=== PATIENT | male | born 2005 | race Native Hawaiian/Other Pacific Islander ===

== ENCOUNTER 2024-01-31 18:20 | Emergency (ER) | payer OTHER, SELFPAY ==
[2024-01-31 18:27] VITALS: BP 131/75; PULSE 68; RESP 18; TEMP 36.8; O2SAT 100; BMI 29.4
--- NOTE | 2024-01-31 18:34 | CRLHL7_ITS ---
For Patients: As a result of the Cures Act, medical imaging exams and procedure reports are released immediately into your electronic medical record. You may view this report before your referring provider. If you have questions, please contact your health care provider. Indication: Fall while snowboarding. Technique: Left shoulder 3 views. Comparison: None. Findings/Impression: Acute, severely displaced fracture of the left distal clavicle. With 2-3 shaft-widths inferior displacement of the distal fracture fragment the acromioclavicular and coracoclavicular intervals appear maintained. No glenohumeral joint dislocation. No definite scapular fracture visualized. The imaged thorax is unremarkable. Dictated by Mario Wright MD @ 01/31/2024 7:50:31 PM (Electronically Signed)
--- NOTE | 2024-01-31 18:35 | ED_ITS ---
HPI - Extremity Injury (Upper) General Chief Complaint: Extremity Pain/Injury, Upper Stated Complaint: Broken Collar bone? Time Seen by Provider: 01/31/24 18:22 History of Present Illness HPI narrative: This 18-year-old male comes in with an injury to his left shoulder that occurred just prior to arrival. He was snowboarding and fell onto his left shoulder and has a deformity in the area of his clavicle. He does not report any other injury or loss of consciousness. Related Data Home Medications ?Medication ?Instructions ?Recorded ?Confirmed No Known Home Medications 01/31/24 01/31/24 Allergies Allergy/AdvReac Type Severity Reaction Status Date / Time azithromycin Allergy Mild Rash Verified 01/31/24 18:30 Review of Systems Status of ROS: Reports: 10 or more systems reviewed and unremarkable except as noted in History and below Narrative: Constitutional: No fevers, no weight gain or loss. Eyes: No discharge. No vision changes. HENT: No congestion, no sore throat, no ear pain. Cardiovascular: No chest pain, no palpitations. Respiratory: No shortness of breath, no wheezes, no cough. Gastrointestinal: No abdominal pain, no vomiting, no diarrhea. Genitourinary: No dysuria, no hematuria. Musculoskeletal: Left shoulder injury as described above. Skin: No rashes, no pruritis. Neurological: No dizziness, weakness, sensory change, speech change. Endo/Heme/Allergies: No bruising or bleeding. No polydipsia. Pysch: no suicidality, no anxiety, no insomnia. All other systems reviewed and are negative. Exam Narrative: Exam Narrative: Constitutional: Well-developed, well-nourished, no acute distress. HEENT: Normocephalic, atraumatic. Neck: Normal range of motion. Nontender. Supple. Heart: Regular. No murmurs. Normal rate. Intact distal pulses. Lungs: Clear to auscultation. No chest discomfort. No wheezes, rhonchi, or rales. Abdomen: Normal bowel sounds. Nontender. No rebound tenderness. Genitalia: Deferred. Back: No midline tenderness. Normal range of motion. Extremities: Deformity in the area of the left clavicle. No sign of skin injury. Skin: Intact. No rash. Warm. No erythema or pallor. Neurologic: No altered sensation. No weakness. Alert and oriented. Psychiatric: No suicidality. No anxiety or depression. No insomnia. Nursing notes and vitals signs are reviewed. Const: Vital Signs, click to edit/add: Vital Signs - 24 hr 01/31/24 18:27 Temperature 98.2 F Pulse Rate [Pulse Oximeter] 68 Respiratory Rate 18 Blood Pressure [Ri ght Upper Arm] 131/75 Pulse Oximetry 100 Oxygen Delivery Me thod Room Air Course Vital Signs Vital signs: Initial Vital Signs Temperature 98.2 F 01/31/24 18:27 Temperature Source Temporal Artery Scan 01/31/24 18:27 Pulse Rate 68 01/31/24 18:27 Pulse Rhythm Regular 01/31/24 18:27 Respiratory Rate 18 01/31/24 18:27 Blood Pressure 131/75 01/31/24 18:27 Blood Pressure Mean 93 01/31/24 18:27 Blood Pressure Position Sitting 01/31/24 18:27 Pulse Oximetry 100 01/31/24 18:27 Oxygen Delivery Method Room Air 01/31/24 18:27 Vital Signs Temperature 98.2 F 01/31/24 18:27 Pulse Rate 68 01/31/24 18:27 Respiratory Rate 18 01/31/24 18:27 Blood Pressure 131/75 01/31/24 18:27 Pulse Oximetry 100 01/31/24 18:27 Oxygen Delivery Method Room Air 01/31/24 18:27 Temperature 98.2 F 01/31/24 18:27 Pulse Rate 68 01/31/24 18:27 Respiratory Rate 18 01/31/24 18:27 Blood Pressure 131/75 01/31/24 18:27 Pulse Oximetry 100 01/31/24 18:27 Oxygen Delivery Method Room Air 01/31/24 18:27 MDM - Extremity Injury (Upper) MDM Narrative Medical decision making narrative: This patient comes in with an injury to his left shoulder. X-ray images show significant displacement of a fracture of the distal portion of the left clavicle. This assessment is by my review and radiology report is pending. I did connect with the orthopedic surgeon on-call, Dr. Aguilar, who recommends surgery sometime in the next week or 2. The patient did receive a sling an a [employer] prescription for Thendara. He is instructed to call for appointment in the orthopedic clinic tomorrow morning. Discharge Plan Discharge Clinical Impression: Fracture of clavicle Patient Disposition: Home, Self-Care Condition: Unchanged Additional Instructions: Wear sling and use pain medicine as needed and directed. Call orthopedic clinic for appointment for ongoing management. Dial [phone] for appointment. Prescriptions: No Action No Known Home Medications Follow Up/Referrals: Gisela Galaviz MD [Primary Care Provider] - Stand Alone Forms: [facility] Info Instructions
--- OUTSIDE RECORDS SUMMARY | 2024-01-31 20:33 | XMS_ITS | Clinical Summary ---
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 Obesity Resolved Problems Problem Noted Date Diagnosed Date Resolved Date Well child check 10/20/2012 01/13/2022 Immunizations Name Administration Dates Next Due COVID-19 vaccine (WeYAP NTech 30mcg/0.3mL) 12YO+ BIVALENT PF, MDV 01/13/2022 DTaP 06/16/2005, 5,2004,05/14 DTaP-IPV (Kinrix) 08/28/2009 HIB PRP-OMP (PedvaxHIB) 06/16/2005,09/16,2004,05/14 HPV 9 (Gardasil 9) 09/29/2016,10/22/2015 Hepatitis A (Peds) 03/02/2013,10/08/2006 Hepatitis A (Peds),Unspecified 10/08/2006 Hepatitis B (Peds) 2004,2004, 005 Influenza, IIV3 (Age 6-35 mos) 8,02/24/2007,01/20/2007,01/20 Influenza, IIV3 (Age >=3 years) 03/02/2013,01/14,01/20/2007 Influenza, IIV4 01/13/2022,01/16/2017,10/22/2015 Influenza,LAIV4 Live Intrana parviz (Flumist) 12/18/2014,11/10/2013 MENINGOCOCCAL VACCINE 2 VIAL 2MO-55YO (MENVEO) 01/13/2022,10/22/2015 MMR 08/28/2009,04/02/2005 Pneumococcal conj 7-Valent (Prevnar 7) 0 06/16/2005,2004,2004,05/14 Polio Virus, Unspecified 08/28/2009,08/24,2004,05/14 Tdap 10/22/2015 Varicella Vaccine 08/28/2009,04/02/2005 Family History Medical History Relation Name Comments No Known Problems Brother x 2 Good Health Father No Known Problems Maternal Grandfather No Known Problems Maternal Grandmother Good Health Mother Hypertension Paternal Grandfather Other Paternal Grandmother P[place] on No Known Problems Sister x2 Relation Name Status Comments Brother x 2 Alive Father Alive Maternal Grandfather Alive Maternal Grandmother Alive Mother Alive Paternal Grandfather Alive Paternal Grandmother Alive Sister x2 Alive Social History Tobacco Use Types Packs/Day Years Used Date Smoking Tobacco: Never Passive Smoke Exposure: Yes Smokeless Tobacco: Never Tobacco Cessation:Counseling Given: No Comments:father outside only Alcohol Use Standard Drinks/Week Comments No 0 (1 standard drink = 0.6 oz pur e alcohol) PHQ-2 Answer Date Recorded PHQ-2 TOTAL SCORE 0 06/05/2022 Social Connections Answer Date Recorded Frequency of Communication with Friends and Fami ly Not on file 06/08/2023 Financial Resource Strain Answer Date R ecorded Difficulty of Paying Living Expenses 3 06/05/2022 Difficulty of Paying Living Expenses Not on file 06/05/2022 Food Insecurity Answer Date Recorded Worried About Running Out of Food in the Last Ye ar 1 06/05/2022 Transportation Needs Answer Date Record ed Lack of Transportation (Medical) 1 06/05/2022 Housing Stability Answer Date Recorded Unable to Pay for Housing in the Last Year 1 06/05/2022 Sex and Gender Information Value Date Recorded Sex Assigned at Not on file Legal Sex Male 7:07 AM RESOURCE DIRECTOR Gender Identity Not on file Sexual Orientation Not on file Occupation Industry Job Start Date Job End Date student Not on file Not on file Not on file Obstetrics History Last Filed Vital Signs Vital Sign Reading Time Taken Comments Blood Pressure 106/67 06/05/2022 11:35 AM CDT Pulse 59 06/05/2022 11:35 AM CDT Temperature 36.7 C (98 F) 05/16/2022 6:56 PM CDT Respiratory Rate 17 05/16/2022 6:56 PM CDT Oxygen Saturation 98% 06/05/2022 11: 35 AM CDT Inhaled Oxygen Concentration - - Weight 120.5 kg (265 lb 9.6 oz) 023 11:35 AM CDT Height 179.8 cm (5' 10.79) 06/05/2022 11:35 AM CDT Head Circumference 21 cm 03/01/2007 4:10 PM RESOURCE DIRECTOR Head Circumference Percentile 0.00% 03/01/2007 4:10 PM RESOURCE DIRECTOR Growth Chart: CDC (Boys, 0-3 6 Months) Body Mass Index 37.27 06/05/2022 11:35 AM CDT Body Mass Index Percentile 98.85% 06/05 11:35 AM CDT Growth Chart: CDC (Boys, 2-2 0 Years) Plan of Treatment Health Maintenance Due Date Last Done Comments HIV for age 15-65 2019 Hepatitis C screening for age 18-79 2022 Well Child Check for age 3-20 01/13/2023 01/13/2022, 09/05/2019, 10/16/2017, Additional history exists BMI (ht and wt on same day) for age 18+ 06/06/2023 06/05/2022 Depression screening for age 12+ 06/06/2023 06/05/2022, 01/13/2022, 09/05/2019, Additional history exists COVID-19 vaccine series ( season) 2023 01/13/2022, 08/04/2020, 07/08/2020 Influenza for age 9-49 10/25/2023 , 01/16/2017, 10/22/2015, Additional history exists Tetanus booster 10/21/2025 10/22/2015 Pneumococcal series for age 6-64 Aged Out 06/16/2005, 2004, 2004, Additional history exists No longer eligible based on patient's age to complete this topic Tdap Completed 10/22/2015 HPV series for age 9-26 Completed 09/29/2016, 10/21 Meningococcal series for age 11-21 Completed 01/13/2022, 10/22/2015 Insurance [employer] [place] Member Subscriber Plan / Payer (Ef fective 2018-Present) Name:John Carrera Relation to Subscriber:Self Name:John Carrera Payer ID:[id number] (NAIC) Group ID:[id number] Type:Not on file Address: [place] [id number] [facility] Care Teams Fabric Stretcher Relationship Specialty Start Date End Date Pcp, No . PCP - General 10/16/17 None . 08/28/09
== END 2024-01-31 20:30 | disposition home or self-care (01) ==
PROVIDERS: Emergency Provider Emergency Medicine Emergency Medical Services; PCP Pediatrics
DX: S42.032A Displaced fracture of lateral end of left clavicle, initial encounter for closed fracture (principal)
CPT/HCPCS: 73030; 99283; 99284